=== PATIENT | male | born 1990 | race Caucasian/White ===

== ENCOUNTER 2018-06-09 08:58 | Inpatient (IN) | payer MEDICAID ==
[~2018-06-09] VITALS: Ht 177.8 cm; Wt 53.6 kg
[2018-06-09 09:10] VITALS: Ht 177.8 cm; Wt 53.6 kg
[2018-06-09 09:52] LABS: RED CELL DISTRIBUTION WIDTH 13.4 % (11.5-14.5)
[2018-06-09 09:58] LABS: PLATELET COUNT 461 x10^3mcL (130-400)
[2018-06-09 10:00] LABS: CALCIUM 9.1 mg/dL (8.5-10.1); CARBON DIOXIDE 28.5 mmol/L (21-32); CHLORIDE SERUM 99 mmol/L (98-107); GFR1 > 60 mL/min; GLUCOSE SERUM 97 mg/dL (74-106); POTASSIUM SERUM 4.2 mmol/L (3.5-5.1); SODIUM SERUM 136 mmol/L (136-145)
[2018-06-09 10:04] LABS: ALKALINE PHOSPHATASE 88 U/L (46-116); ALT/SGPT 27 U/L (16-63); AST/SGOT 16 U/L (15-37); BILIRUBIN TOTAL 0.1 mg/dL (0.20-1.00); TOTAL PROTEIN, SERUM 7.4 g/dL (6.4-8.2)
[2018-06-09 10:06] LABS: ALBUMIN 2.7 g/dL (3.4-5.0)
[2018-06-09 10:19] LABS: UA SPECIFIC GRAVITY 1.015 (1.005-1.035); microscopic required? YES; urine erythrocyte NEGATIVE (NEGATIVE)
[2018-06-09 10:29] LABS: AMPHETAMINE QUAL UR POSITIVE (See below)
[2018-06-09 13:20] VITALS: BP 109/72
[2018-06-09 15:22] LABS: BAND NEUTROPHIL 25 % (0-10); MONOCYTE 6 % (0-7); SEGMENTED NEUTROPHILS 67 % (37-75)
[2018-06-09 15:24] LABS: rbc morphology (normal/abnorm) NORMAL (NORMAL)
[2018-06-09 15:25] LABS: PLATELET MORPHOLOGY PLATELETS INCREASED
[2018-06-09 16:13] VITALS: BP 108/71
[2018-06-09 20:17] VITALS: BP 133/79
[2018-06-10 05:16] VITALS: BP 120/78
[2018-06-10 07:03] LABS: BASOPHIL % 0.3 % (0-2); PLATELET COUNT 416 x10^3mcL (130-400); RED CELL DISTRIBUTION WIDTH 13.2 % (11.5-14.5)
[2018-06-10 07:31] LABS: CALCIUM 8.6 mg/dL (8.5-10.1); CARBON DIOXIDE 27.3 mmol/L (21-32); CHLORIDE SERUM 97 mmol/L (98-107); GFR1 > 60 mL/min; GLUCOSE SERUM 103 mg/dL (74-106); POTASSIUM SERUM 4.5 mmol/L (3.5-5.1); SODIUM SERUM 132 mmol/L (136-145)
[2018-06-10 09:43] VITALS: BP 119/77
[2018-06-10 17:22] VITALS: BP 119/65
[2018-06-10 21:44] VITALS: BP 118/74
[2018-06-11 05:44] VITALS: BP 106/73
[2018-06-11 06:02] LABS: BASOPHIL % 0.3 % (0-2); RED CELL DISTRIBUTION WIDTH 13.5 % (11.5-14.5)
[2018-06-11 06:27] LABS: CALCIUM 8.7 mg/dL (8.5-10.1); CHLORIDE SERUM 101 mmol/L (98-107); CREATININE SERUM 0.9 mg/dL (0.7-1.3); GFR1 > 60 mL/min; GLUCOSE SERUM 112 mg/dL (74-106); POTASSIUM SERUM 4.5 mmol/L (3.5-5.1); SODIUM SERUM 140 mmol/L (136-145)
[2018-06-11 06:46] LABS: PLATELET COUNT 433 x10^3mcL (130-400)
[2018-06-11 10:23] VITALS: BP 108/64
[2018-06-11 17:09] VITALS: BP 97/59
== END 2018-06-11 18:05 | disposition left against medical advice (07) | DRG 720 ==
LOC: ED 08:58 → MU 10:58
PROVIDERS: Emergency Medicine; ADMIT Internal Medicine
DX: A41.9 Sepsis, unspecified organism (principal); E87.2 Acidosis; E44.1 Mild protein-calorie malnutrition; N45.1 Epididymitis; N39.0 Urinary tract infection, site not specified; F12.10 Cannabis abuse, uncomplicated; F14.10 Cocaine abuse, uncomplicated; F15.10 Other stimulant abuse, uncomplicated; F17.210 Nicotine dependence, cigarettes, uncomplicated; Z59.0 Homelessness
CPT/HCPCS: 87491; 87591; 90658; J0456; J0696; J1956; J2270; J2405; J3370; J7030; J7042; J7050